=== PATIENT | female | born 1995 | race Caucasian/White ===

== ENCOUNTER → 2016-05-02 | Outpatient (REF) ==
--- NOTE | 2016-05-02 15:47 | Diagnostic Imaging Report ---
EXAMINATION: Left wrist. INDICATION: Injury, wrist pain. Three views were obtained. FINDINGS: There is no fracture, dislocation, or acute bony abnormality evident. The radiocarpal joint is well maintained. There is ulnar minus variance. The soft tissues are unremarkable. IMPRESSION: There is no evidence for an acute bony abnormality. Dictated by: Dictated on workstation # [id number]
== END | disposition home or self-care (01) ==
LOC: OCC 15:28
PROVIDERS: ATTEND Nurse Practitioner Family
CPT/HCPCS: 73110

== ENCOUNTER 2016-07-28 08:08 | Emergency (ER) | payer OTHER ==
[~2016-07-28] VITALS: Ht 175.3 cm; Wt 104.3 kg
[2016-07-28] MEDS ORDERED: BUSP10TA95 PO (08:32)
[2016-07-28] MEDS ORDERED: VENL37.52 PO (08:32)
[2016-07-28] MEDS ORDERED: KETOROLAC 60 MG/2 ML VIAL IM ONE (10:15)
[2016-07-28] MEDS ORDERED: ORPHENADRINE 60 MG/2 ML (NORFLEX) AMP IM ONE (10:15)
[2016-07-28] MEDS ORDERED: CYCL5TAB PO (10:17)
[2016-07-28] MEDS ORDERED: PRD20T PO (10:17)
--- NOTE | 2016-07-28 10:18 | ED Back Pain ---
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 Nursing Sepsis Screen: No Definite Risk Source of Information: Patient Exam Limitations: No Limitations History of Present Illness Time Seen by Provider: 10:15 Initial Comments To ER with right low back pain that radiates into the right buttocks and down the right leg. This began yesterday and she believes she may have lifted somebody incorrectly at work at [employer]. Location: Lumbar Spine Timing/Duration: 12-24 Hours Severity: Moderate Pain/Injury Location: Back Associated Symptoms: denies symptoms Allergies and Home Medications Allergies Coded Allergies: Penicillins (Verified Allergy, Unknown, 07/28/16) Home Medications Buspirone HCl 10 Mg Tablet, Unknown Dose PO DAILY, (Reported) Venlafaxine HCl 37.5 Mg Cap.er.24h, Unknown Dose PO DAILY, (Reported) Constitutional: see HPI EENTM: see HPI Respiratory: no symptoms reported Cardiovascular: no symptoms reported Genitourinary: no symptoms reported Musculoskeletal: see HPI Skin: no symptoms reported Psychiatric/Neurological: No Symptoms Reported Past Retfiwx-Rlhbkb-Epzozr Hx Patient Social History Alcohol Use: Rarely Uses Recreational Drug Use: No Smoking Status: Never a Smoker Recent Foreign Travel: No Contact w/Someone Who Travel: No Recent Infectious Disease Expo: No Recent Hopitalizations: No Respiratory Respiratory Disorders: Asthma Physical Exam Vital Signs Vital Sign - Last 12Hours 07/28/16 08:24 Temp 98.1 Pulse 136 Resp 20 B/P (MAP) 147/92 Pulse Ox 99 Capillary Refill : Less Than 3 Seconds General Appearance: No Apparent Distress, WD/WN HEENT: PERRL/EOMI, TMs Normal Neck: Full Range of Motion, Normal Inspection Cardiovascular: Regular Rate, Rhythm, Normal Peripheral Pulses Respiratory: No Accessory Muscle Use, No Respiratory Distress Gastrointestinal: Non Tender, Soft Back: Normal Inspection, Other Extremity: Normal Capillary Refill, Normal Inspection Neurologic/Psychiatric: Alert, Oriented x3, No Motor/Sensory Deficits Skin: Normal Color, Warm/Dry Progress/Results/Core Measures Results/Orders My Orders Orders - PATRICA SORENSON APRN Ketorolac Injection (Toradol Injection) (07/28/16 10:15) Orphenadrine Injection (Norflex Injectio (07/28/16 10:15) Vital Signs/I&O Vital Sign - Last 12Hours 07/28/16 08:24 Temp 98.1 Pulse 136 Resp 20 B/P (MAP) 147/92 Pulse Ox 99 Blood Pressure Mean: 110 Departure Impression Impression: Primary Impression: Back pain Disposition: 01 HOME, SELF-CARE Condition: Stable Departure-Patient Inst. Decision time for Depature: 10:16 Referrals: NO,LOCAL PHYSICIAN (PCP) Primary Care Physician Patient Instructions: Low Back Pain (DC) Add. Discharge Instructions: 1. Follow-up with your doctor next week 2. Return to ER for any concerns 3. No lifting greater than 5 pounds for one week. All discharge instructions reviewed with patient and/or family. Voiced understanding. Scripts Cyclobenzaprine HCl (Cyclobenzaprine HCl) 5 Mg Tablet 5 MG PO TID Y for PAIN-MODERATE TO SEVERE, #20 TAB Prov: PATRICA SORENSON APRN 07/28/16 Prednisone (Prednisone) 20 Mg Tab 40 MG PO DAILY, #6 TAB Prov: PATRICA SORENSON APRN 07/28/16 Work/School Note: Work Release Form Date Seen in the Emergency Department: July 28, 2016 Return to Work: July 29, 2016 Other Restrictions Listed Below: No lifting greater than 5 pounds for one week PATRICA SORENSON APRN July 28, 2016 10:18
[2016-07-28 10:42] VITALS: BP 135/84
== END 2016-07-28 10:40 | disposition home or self-care (01) ==
LOC: EDUNIT# 08:08 → ER 08:10
DX: M54.5 Low back pain (principal)
CPT/HCPCS: 96372; 99281